=== PATIENT | female | born 1965 | race Two or more races ===

== ENCOUNTER 2024-08-23 09:49 | Emergency (ER) | payer OTHER ==
[~2024-08-23] VITALS: Ht 160 cm; Wt 126.0 kg
[2024-08-23 10:57] VITALS: BP 145/89; PULSE 102; RESP 18; TEMP 98; O2SAT 95
[2024-08-23] MEDS: SILVER SULFADIAZINE 1 % TOPICAL CREAM 50GM TOP ONE (11:08)
[2024-08-23] MEDS ORDERED: SILV1CRE82 TOP (11:23)
[2024-08-23] MEDS ORDERED: IBUP-1456 PO (11:23)
[2024-08-23] MEDS ORDERED: CEPH500C PO (11:23)
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
== END 2024-08-23 11:40 | disposition home or self-care (01) ==
LOC: ER 09:49
DX: T21.22XA Burn of second degree of abdominal wall, initial encounter (principal); T21.11XA Burn of first degree of chest wall, initial encounter; T20.17XA Burn of first degree of neck, initial encounter; Z79.1 Long term (current) use of non-steroidal anti-inflammatories (NSAID); X19.XXXA Contact with other heat and hot substances, initial encounter; Y93.89 Activity, other specified; Y92.89 Other specified places as the place of occurrence of the external cause; Y99.8 Other external cause status
CPT/HCPCS: 16020